=== PATIENT | female | born 1980 | race Caucasian/White ===

== ENCOUNTER 2019-04-03 20:35 | Emergency (ER) | payer OTHER ==
--- NOTE | 2019-04-03 22:44 | EDPHYS ---
Physician Documentation [facility] Name: Janeen Salgado Age: 39 yrs Sex: Female : 1980 Arrival Date: 04/03/2019 Time: 20:36 Bed 18 Private MD: Mami Vergara K ED Physician Anshul Acevedo HPI: 04/03 22:39 This 39 yrs old Female presents to ER via Ambulatory with complaints of Ankle taylor Injury. 22:39 The patient presents with decreased range of motion. The complaints affect the right taylor ankle. Onset: The symptoms/episode began/occurred just prior to arrival. Context: The problem was sustained outdoors, resulted from a mis-step by the patient, The mechanism of injury involved inversion of the affected ankle. The patient is unable to bear weight. Associated signs and symptoms: The patient has no apparent associated signs or symptoms. The patient has not experienced similar symptoms in the past. 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 - Social history:: Smoking status: Patient/guardian denies using tobacco. - Ebola Screening: : Patient negative for fever greater than or equal to 101.5 degrees Fahrenheit, and additional compatible Ebola Virus Disease symptoms Patient denies exposure to infectious person Patient denies travel to an Ebola-affected area in the 21 days before illness onset No symptoms or risks identified at this time. - Family history:: not pertinent. ROS: 22:39 Constitutional: Negative for fever, chills, and weight loss, Eyes: Negative for injury, taylor pain, redness, and discharge, ENT: Negative for injury, pain, and discharge, Neck: Negative for injury, pain, and swelling, Cardiovascular: Negative for chest pain, palpitations, and edema, Respiratory: Negative for shortness of breath, cough, wheezing, and pleuritic chest pain, Abdomen/GI: Negative for abdominal pain, nausea, vomiting, diarrhea, and constipation, Back: Negative for injury and pain, : Negative for injury, bleeding, discharge, and swelling, Skin: Negative for injury, rash, and discoloration, Neuro: Negative for headache, weakness, numbness, tingling, and seizure, Psych: Negative for depression, anxiety, suicide ideation, homicidal ideation, and hallucinations, Allergy/Immunology: Negative for hives, rash, and allergies, Endocrine: Negative for neck swelling, polydipsia, polyuria, polyphagia, and marked weight changes, Hematologic/Lymphatic: Negative for swollen nodes, abnormal bleeding, and unusual bruising. 22:39 MS/extremity: Positive for injury or acute deformity, decreased range of motion, pain, swelling, tenderness, of the right ankle. Exam: 22:39 Constitutional: This is a well developed, well nourished patient who is awake, alert, taylor and in no acute distress. Head/Face: Normocephalic, atraumatic. Eyes: Pupils equal round and reactive to light, extra-ocular motions intact. Lids and lashes normal. Conjunctiva and sclera are non-icteric and not injected. Cornea within normal limits. Periorbital areas with no swelling, redness, or edema. ENT: Nares patent. No nasal discharge, no septal abnormalities noted. Tympanic membranes are normal and external auditory canals are clear. Oropharynx with no redness, swelling, or masses, exudates, or evidence of obstruction, uvula midline. Mucous membranes moist. Neck: Trachea midline, no thyromegaly or masses palpated, and no cervical lymphadenopathy. Supple, full range of motion without nuchal rigidity, or vertebral point tenderness. No Meningismus. Chest/axilla: Normal chest wall appearance and motion. Nontender with no deformity. No lesions are appreciated. Cardiovascular: Regular rate and rhythm with a normal S1 and S2. No gallops, murmurs, or rubs. Normal PMI, no JVD. No pulse deficits. Respiratory: Lungs have equal breath sounds bilaterally, clear to auscultation and percussion. No rales, rhonchi or wheezes noted. No increased work of breathing, no retractions or nasal flaring. Abdomen/GI: Soft, non-tender, with normal bowel sounds. No distension or tympany. No guarding or rebound. No evidence of tenderness throughout. Back: No spinal tenderness. No costovertebral tenderness. Full range of motion. Female : Normal external genitalia. Skin: Warm, dry with normal turgor. Normal color with no rashes, no lesions, and no evidence of cellulitis. Neuro: Awake and alert, GCS 15, oriented to person, place, time, and situation. Cranial nerves II-XII grossly intact. Motor strength 5/5 in all extremities. Sensory grossly intact. Cerebellar exam normal. Normal gait. Psych: Awake, alert, with orientation to person, place and time. Behavior, mood, and affect are within normal limits. 22:39 Musculoskeletal/extremity: ROM: limited active range of motion, limited passive range of motion, Circulation is intact in all extremities. Sensation intact. Compartment Syndrome exam of affected extremity: is normal. Weight bearing: is unable to bear weight, DVT Exam: pain, swelling, tenderness, that is moderate, of the right leg, of the right ankle. Vital Signs: 21:22 BP 140 / 85; Pulse 93; Resp 18; Temp 98.3; Pulse Ox 100% on R/A; Weight 79.38 kg; ed1 Height 5 ft. 2 in. (157.48 cm); Pain 5/10; 22:26 BP 133 / 87; Pulse 91; Resp 18 S; Pulse Ox 100% on R/A; cc3 23:20 BP 135 / 83; Pulse 89; Resp 17 S; Pulse Ox 100% on R/A; cc3 21:22 Body Mass Index 32.01 (79.38 kg, 157.48 cm) ed1 MDM: 22:30 Patient medically screened. [facility] 22:41 Data reviewed: vital signs, nurses notes, radiologic studies, plain films. [facility] 04/03 21:23 Order name: XRAY Ankle RIGHT 3 view ed1 04/03 22:39 Order name: Ice pack; Complete Time: 23:41 [facility] 04/03 22:39 Order name: Splint - Ankle: Posterior; Complete Time: 23:41 [facility] Administered Medications: 23:10 Drug: Motrin 600 mg Route: PO; cc3 23:30 Follow up: Response: No adverse reaction; Pain is decreased cc3 23:10 Drug: [place] 10 mg-325 mg 1 tabs Route: PO; cc3 23:30 Follow up: Response: No adverse reaction; Pain is decreased cc3 Disposition: 04/03/19 22:43 Discharged to Home. Impression: Sprain of deltoid ligament of right ankle, Sprain of ankle. - Condition is Stable. - Discharge Instructions: Ankle Sprain, Ankle Sprain, Olps-sv-Vogx. - Prescriptions for Ibuprofen 600 mg Oral Tablet - take 1 tablet by ORAL route every 8 hours As needed take with food; 21 tablet. Tylenol- Codeine #3 300-30 mg Oral Tablet - take 2 tablet by ORAL route every 6 hours As needed; 30 tablet. - Medication Reconciliation Form, Thank You Letter, Antibiotic Education, Prescription Opioid Use form. - Follow up: Mami Vergara MD; When: 2 - 3 days; Reason: Recheck today's complaints, Continuance of care, Re-evaluation by your physician. Follow up: Luis F Chatman MD; When: 2 - 3 days; Reason: Recheck today's complaints, Continuance of care, Re-evaluation by your physician. - Problem is new. - Symptoms have improved. Signatures: Dispatcher [employer] EDOH Anshul Acevedo MD MD cha Riggs, Erika RN RN ed1 Juanita Valenzuela cc3 Corrections: (The following items were deleted from the chart) 23:41 22:39 Crutches ordered. taylor cc3 23:45 22:43 04/03/2019 22:43 Discharged to Home. Impression: Sprain of deltoid ligament of cc3 right ankle; Sprain of ankle. Condition is Stable. Forms are Medication Reconciliation Form, Thank You Letter, Antibiotic Education, Prescription Opioid Use. Follow up: Mami Vergara; When: 2 - 3 days; Reason: Recheck today's complaints, Continuance of care, Re-evaluation by your physician. Follow up: Luis F Chatman; When: 2 - 3 days; Reason: Recheck today's complaints, Continuance of care, Re-evaluation by your physician. Problem is new. Symptoms have improved. taylor
--- NOTE | 2019-04-03 22:44 | ER ---
Nurse's Notes [facility] Name: Janeen Salgado Age: 39 yrs Sex: Female : 1980 Arrival Date: 04/03/2019 Time: 20:36 Bed 18 Private MD: Mami Vergara K Diagnosis: Sprain of deltoid ligament of right ankle;Sprain of ankle Presentation: 04/03 21:21 Presenting complaint: Patient states: I twisted my ankle and now it is swelling. ed1 Transition of care: patient was not received from another setting of care. Onset of symptoms was April 03, 2019. Risk Assessment: Do you want to hurt yourself or someone else? Patient reports no desire to harm self or others. Initial Sepsis Screen: Does the patient meet any 2 criteria? No. Patient's initial sepsis screen is negative. Does the patient have a suspected source of infection? No. Patient's initial sepsis screen is negative. Care prior to arrival: None. 21:21 Method Of Arrival: Ambulatory ed1 21:21 Acuity: WAYNE 4 ed1 Triage Assessment: 21:22 General: Appears uncomfortable, Behavior is calm, cooperative. Pain: Complains of pain ed1 in right ankle Pain currently is 5 out of 10 on a pain scale. Musculoskeletal: Swelling present in right ankle. 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 - Social history:: Smoking status: Patient/guardian denies using tobacco. - Ebola Screening: : Patient negative for fever greater than or equal to 101.5 degrees Fahrenheit, and additional compatible Ebola Virus Disease symptoms Patient denies exposure to infectious person Patient denies travel to an Ebola-affected area in the 21 days before illness onset No symptoms or risks identified at this time. - Family history:: not pertinent. Screenin:25 Abuse screen: Denies threats or abuse. Denies injuries from another. Nutritional cc3 screening: No deficits noted. Tuberculosis screening: No symptoms or risk factors identified. Fall Risk Ambulatory Aid- None/Bed Rest/Nurse Assist (0 pts). Gait- Weak (10 pts.). Mental Status- Oriented to own ability (0 pts). Assessment: 22:25 Reassessment: Patient appears in no apparent distress at this time. Patient and/or cc3 family updated on plan of care and expected duration. Pain level reassessed. Patient is alert, oriented x 3, equal unlabored respirations, skin warm/dry/pink. 23:35 Reassessment: Patient appears in no apparent distress at this time. Patient and/or cc3 family updated on plan of care and expected duration. Pain level reassessed. Patient is alert, oriented x 3, equal unlabored respirations, skin warm/dry/pink. Dr. Acevedo discharged the patient home with prescription given. No IV cannula in situ. Informed Dr. Acevedo to check the splint done but he didn't check it, charge nurse Gisella aware. Patient refused for new crutches because she has her own. Patient left ER vitally stable by wheelchair escorted by me. Patient denies pain at this time. Patient states feeling better. Patient states symptoms have improved. Vital Signs: 21:22 BP 140 / 85; Pulse 93; Resp 18; Temp 98.3; Pulse Ox 100% on R/A; Weight 79.38 kg; ed1 Height 5 ft. 2 in. (157.48 cm); Pain 5/10; 22:26 BP 133 / 87; Pulse 91; Resp 18 S; Pulse Ox 100% on R/A; cc3 23:20 BP 135 / 83; Pulse 89; Resp 17 S; Pulse Ox 100% on R/A; cc3 21:22 Body Mass Index 32.01 (79.38 kg, 157.48 cm) ed1 ED Course: 20:36 Patient arrived in ED. es 20:37 Mami Vergara MD is Private Physician. es 21:21 Triage completed. ed1 21:22 Arm band placed on right wrist. ed1 22:25 Juanita Valenzuela is Primary Nurse. cc3 22:25 Patient has correct armband on for positive identification. Bed in low position. Call cc3 light in reach. Side rails up X 1. Pulse ox on. NIBP on. 22:30 Anshul Acevedo MD is Attending Physician. [facility] 22:42 Mami Vergara MD is Referral Physician. [facility] 22:42 Luis F Chatman MD is Referral Physician. [facility] 23:06 XRAY Ankle RIGHT 3 view In Process Unspecified. EDMS 23:35 No provider procedures requiring assistance completed. Patient did not have IV access cc3 during this emergency room visit. Administered Medications: 23:10 Drug: Motrin 600 mg Route: PO; cc3 23:30 Follow up: Response: No adverse reaction; Pain is decreased cc3 23:10 Drug: [place] 10 mg-325 mg 1 tabs Route: PO; cc3 23:30 Follow up: Response: No adverse reaction; Pain is decreased cc3 Outcome: 22:43 Discharge ordered by . taylor 23:35 Discharged to home via wheelchair. cc3 23:35 Condition: stable 23:35 Discharge instructions given to patient, Instructed on discharge instructions, follow up and referral plans. medication usage, Demonstrated understanding of instructions, follow-up care, medications, Prescriptions given X 2. 23:45 Patient left the ED. cc3 Signatures: Dispatcher [employer] EDAnshul Babcock MD MD cha Salyer, Edna es Riggs, Erika RN RN ed1 Juanita Valenzuela cc3
[2019-04-03] MEDS ORDERED: IBUPROFEN 400 MG TAB ONE (23:33)
[2019-04-03] MEDS ORDERED: IBUPROFEN 200 MG TAB PO ONE (23:33)
[2019-04-03] MEDS ORDERED: HYDROCODONE/APAP 10/325 TAB ONE (23:33)
--- NOTE | 2019-04-04 08:33 | RAD REPORT ---
EXAM DESCRIPTION: RAD - Ankle Right 3 View - 04/03/2019 11:05 pm CLINICAL HISTORY: PAIN Ankle twisting, pain COMPARISON: No comparisons FINDINGS: Prominent soft tissue swelling is seen along the lateral malleolus. No fracture or disloca tion present. Small plantar calcaneal spur.
== END 2019-04-03 23:45 | disposition home or self-care (01) ==
LOC: ER 20:35
PROC: 2W3QX1Z Immobilization of Right Lower Leg using Splint (ICD-10-PCS; principal; 2019-04-03)
DX: S93.421A Sprain of deltoid ligament of right ankle, initial encounter (principal); X50.1XXA Overexertion from prolonged static or awkward postures, initial encounter
CPT/HCPCS: 99284